=== PATIENT | female | born 1950 | race Caucasian/White ===

== ENCOUNTER → 2016-10-19 | Outpatient (CLI) | payer MEDICARE ==
[~2016-10-19] MED LIST: ALLEGRA ALLERG180 MG PO; ASPIRIN CHEWABL81 MG PO; BIOTIN1 MG PO; CALCIUM 600 +1 EAC3 PO; CRESTOR5 MG PO; DILTIAZEM 24HR300 M1 PO; DYAZIDE 37.5-21 EACH PO; LEVOXYL112 MCG PO; METAMUCIL MULT660 GM PO; NORCO 7.5-3251 EACH PO; POTASSIUM CHLO10 MEQ PO; VITAMIN C250 MG PO
[2016-10-19 08:53] LABS: HEMOGLOBIN 14.5 gm/dl (12.3-15.3); RED BLOOD COUNT 4.88 M/UL (4.00-5.10); WHITE BLOOD COUNT 6.6 K/UL (4.5-11.0)
== END ==
LOC: OPSV2 08:00
PROVIDERS: Orthopaedic Surgery
DX: Z01.810 Encounter for preprocedural cardiovascular examination (principal); Z01.812 Encounter for preprocedural laboratory examination; M20.42 Other hammer toe(s) (acquired), left foot; I10 Essential (primary) hypertension; Z88.8 Allergy status to other drugs, medicaments and biological substances; Z91.040 Latex allergy status
CPT/HCPCS: 36415; 80048; 85027; 93005

== ENCOUNTER → 2016-10-26 | Day surgery (SDC) | payer MEDICARE ==
[~2016-10-26] VITALS: Ht 157.5 cm; Wt 76.7 kg
== END | disposition home or self-care (01) ==
LOC: OR 05:45
PROVIDERS: Orthopaedic Surgery
PROC: 0SW Lower Joints, Revision (ICD-10-PCS; principal; 2016-10-26 07:45)
DX: M20.42 Other hammer toe(s) (acquired), left foot (principal); E78.5 Hyperlipidemia, unspecified; I12.9 Hypertensive chronic kidney disease with stage 1 through stage 4 chronic kidney disease, or unspecified chronic kidney disease; N18.9 Chronic kidney disease, unspecified; E03.9 Hypothyroidism, unspecified; E07.9 Disorder of thyroid, unspecified; Z91.040 Latex allergy status; Z88.8 Allergy status to other drugs, medicaments and biological substances; Z79.82 Long term (current) use of aspirin; Z79.899 Other long term (current) drug therapy; Z90.710 Acquired absence of both cervix and uterus; Z87.440 Personal history of urinary (tract) infections
CPT/HCPCS: 73620; 76000; C1776; J0690; J1100; J2250; J2405; J3010; J7120

== ENCOUNTER → 2021-06-28 | Outpatient (CLI) | payer MEDICARE ==
[~2021-06-28] MED LIST changes: +ANTIVERT 12.512.5 MG PO; +COQ-10100 MG PO; +CYTOMEL5 MCG PO; +DHEA25 M1 PO; +DYAZIDE 37.5/251 EA PO; +ESTRACE42.5 GM TOP; +FISH OIL 1,0001 EACH PO; +NORCO 5-325 TA1 EACH PO; +PROGESTERONE100 MG PO; +SYNTHROID100 MCG PO; +ULTRAM50 MG PO; +VITAMIN C1000 MG PO; +VITAMIN D5000 UNIT PO; +[UNRECOGNIZED DRUG - REMARK] PO
== END ==
LOC: KOH-I 14:49
DX: M25.532 Pain in left wrist (principal); M79.642 Pain in left hand; M19.042 Primary osteoarthritis, left hand
CPT/HCPCS: 73110; 73130

== ENCOUNTER → 2021-11-25 | Outpatient (CLI) | payer MEDICARE ==
[~2021-11-25] MED LIST changes: +ASPIRIN EC81 MG PO; +AZO URINARY P99.5 MG PO; +LEVOTHYROXINE100 MC2 PO; +METAMUCIL0.52 GM PO; +TRIAMTERENE-HC1 EAC1 PO
[2021-11-25 09:35] LABS: RED BLOOD COUNT 4.59 M/UL (4.00-5.10); WHITE BLOOD COUNT 7.3 K/UL (4.5-11.0)
== END ==
LOC: EDSTATUS 08:00 → OPSV2 08:00
PROVIDERS: Orthopaedic Surgery
DX: Z01.818 Encounter for other preprocedural examination (principal); M46.1 Sacroiliitis, not elsewhere classified; R91.8 Other nonspecific abnormal finding of lung field; I44.60 Unspecified fascicular block; R94.31 Abnormal electrocardiogram [ECG] [EKG]
CPT/HCPCS: 36415; 71046; 80048; 85025; 93005

== ENCOUNTER → 2021-12-08 | Day surgery (SDC) | payer MEDICARE ==
[~2021-12-08] VITALS: Ht 157.5 cm; Wt 73.9 kg
[~2021-12-08] MED LIST changes: +HYDROCODON-ACE1 EAC2 PO
== END | disposition home or self-care (01) ==
LOC: OR 11-29 07:30
PROVIDERS: Orthopaedic Surgery
DX: M53.3 Sacrococcygeal disorders, not elsewhere classified (principal); G89.29 Other chronic pain; E07.9 Disorder of thyroid, unspecified; N28.9 Disorder of kidney and ureter, unspecified; M25.511 Pain in right shoulder; Z85.71 Personal history of Hodgkin lymphoma; Z88.8 Allergy status to other drugs, medicaments and biological substances
CPT/HCPCS: 72202; 76000; 80048; C1776; J0690; J1100; J2274; J2405; J2704; J2710; J3010; J7040; J7050; J7120

== ENCOUNTER → 2022-03-23 | Outpatient (CLI) | payer MEDICARE | LOC: KOH-I 08:30 | DX: R10.84 Generalized abdominal pain (principal); K59.00 Constipation, unspecified | CPT/HCPCS: 74018 ==

== ENCOUNTER → 2022-03-28 | Outpatient (CLI) | payer MEDICARE | LOC: EXRD 09:55 | DX: R10.84 Generalized abdominal pain (principal) | CPT/HCPCS: 76705 ==